=== PATIENT | female | born 2005 | race Caucasian/White ===

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

== ENCOUNTER 2023-10-02 15:34 | Outpatient (CLI) | payer BC, SELFPAY ==
[2023-10-02 15:58] LABS: Basophils # 0.1 K/mm3 (0-0.2); Basophils % 0.6 % (0.1-2.0); Eosinophils % 0.2 % (0.1-12.0); Hematocrit 45.5 % (37.0-47.0); Hemoglobin 15.2 g/dL (12.2-16.2); Lymphocytes # 1.9 K/mm3 (0.7-4.5); Lymphocytes % 21.7 % (10-50); Mean Corpuscular HGB Conc 33.4 g/dL (31.8-35.4); Mean Corpuscular Hemoglobin 30.6 pg (27.0-31.2); Mean Corpuscular Volume 91.7 fl (81-99); Mean Platelet Volume 8.5 fl (7.4-10.4); Monocytes # 0.3 K/mm3 (0.1-1.0); Monocytes % 3.1 % (1.7-9.3); Neutrophils # 6.5 K/mm3 (1.8-7.8); Neutrophils % 74.4 % (37.0-80.0); Platelet Count 300 K/mm3 (142-424); Red Blood Count 4.96 M/mm3 (4.20-5.40); Red Cell Distribution Width 13.7 % (11.5-17.5); White Blood Count 8.8 K/mm3 (4.5-13.0)
[2023-10-02 16:17] LABS: Alanine Aminotransferase 15 U/L (12-78); Albumin/Globulin Ratio 1.6 (1.1-1.8); Alkaline Phosphatase 52 U/L (38-126); Anion Gap 12.3 mEq/L (5-15); Aspartate Amino Transferase 24 U/L (14-36); Bilirubin,Total 0.6 mg/dl (0.2-1.3); Blood Urea Nitrogen 12 mg/dl (7-17); Calcium 10.3 mg/dl (8.4-10.2); Carbon Dioxide 26 mmol/L (22.0-30.0); Chloride 105 mmol/L (98-107); Chol/HDL Ratio 2.8 (1-3.5); Cholesterol 225 mg/dl (140-200); Estimated Glomerular Filt Rate 127 ml/min (>60); GFR (African American) 154 ML/MIN (>60); Globulin 3.1 g/dL (1.3-3.2); Glucose 97 mg/dl (74-100); HDL Cholesterol 79 mg/dl (40-60); Potassium 4.3 mmoL/L (3.5-5.1); Sodium 139 mmol/L (136-145); Total Protein,Serum 8.1 g/dl (6.3-8.2); Triglycerides 147 mg/dl (30-150); VLDL Cholesterol 29 mg/dL (0-40)
[2023-10-02 16:29] LABS: C-Reactive Protein 0.4 mg/L (0-4)
[2023-10-02 16:35] LABS: 25-OH Vitamin D, Total 102 ng/mL (30-100); Triiodothryronine (T3) Uptake 28 % (23.5-40.5)
[2023-10-02 16:39] LABS: Free Thyroxine Index 3.1 ug/dL (5.93-13.13); T4 (Thyroxine) 10.9 ug/dl (5.53-11.0)
[2023-10-02 16:59] LABS: Erythrocyte Sedimentation Rate 1 mm/hr (0-20)
[2023-10-02 17:08] LABS: Vitamin B12 303 pg/mL (239-931)
[2023-10-02 18:28] LABS: Iron 159 ug/dL (37-170)
[2023-10-02 18:38] LABS: Total Iron Binding Capacity 362 ug/dL (265-497)
[2023-10-04 03:37] LABS: Thyroid Peroxidase Antibodies 17 IU/mL (0-34)
[2023-10-04 03:37] LABS: Prolactin 13.4 ng/mL (4.8-33.4)
[2023-10-05 17:04] LABS: Thyroid Stimulating Immunoglob <0.10 IU/L (0.00-0.55)
[2023-10-06 14:10] LABS: Anti-Centromere B Antibodies <0.2 AI (0.0-0.9); Anti-DNA (DS) Ab Qn <1 IU/mL (0-9); Anti-Jo-1 <0.2 AI (0.0-0.9); Anti-Smith Antibody <0.2 AI (0.0-0.9); Antichromatin Antibodies <0.2 AI (0.0-0.9); Antiscleroderma-70 Antibodies <0.2 AI (0.0-0.9); RA Latex Turbid. 10.6 IU/mL (<14.0); RNP Antibodies 0.2 AI (0.0-0.9); Sjogren's Anti-SS-A <0.2 AI (0.0-0.9); Sjogren's Anti-SS-B <0.2 AI (0.0-0.9)
== END 2023-10-02 23:59 | disposition home or self-care (01) ==
LOC: LAB.DROPOF 15:34
PROVIDERS: PCP Physician Assistant; Visit Provider Physician Assistant
DX: R53.83 Other fatigue (principal)
CPT/HCPCS: 80050; 80053; 80061; 82306; 82607; 83540; 83550; 84146; 84436; 84443; 84445; 84479; 85025; 85651; 86140; 86225; 86235; 86376; 86431

== ENCOUNTER 2023-10-10 13:26 | Outpatient (CLI) | payer BC, SELFPAY ==
[2023-10-10 14:28] LABS: Anion Gap 12.1 mEq/L (5-15); Blood Urea Nitrogen 11 mg/dl (7-17); Calcium 10.2 mg/dl (8.4-10.2); Carbon Dioxide 24 mmol/L (22.0-30.0); Chloride 107 mmol/L (98-107); Estimated Glomerular Filt Rate 127 ml/min (>60); GFR (African American) 154 ML/MIN (>60); Glucose 100 mg/dl (74-100); Potassium 4.1 mmoL/L (3.5-5.1); Sodium 139 mmol/L (136-145)
[2023-10-10 14:38] LABS: Intact Parathyroid Hormone 17.9 pg/mL (7.5-53.5)
[2023-10-10 14:45] LABS: 25-OH Vitamin D, Total 101 ng/mL (30-100)
[2023-10-13 15:10] LABS: Calcium, Ionized 5.1 mg/dL (4.5-5.6)
== END 2023-10-10 23:59 | disposition home or self-care (01) ==
LOC: LAB 13:27
PROVIDERS: PCP Internal Medicine Adolescent Medicine; Visit Provider Physician Assistant
DX: R53.83 Other fatigue (principal)
CPT/HCPCS: 36415; 80048; 82306; 82330; 83970